=== PATIENT | female | born 2000 | race Caucasian/White ===

== ENCOUNTER 2024-10-31 09:11 | Outpatient (CLI) | payer MEDICAID, SELFPAY | END 2024-10-31 23:59 | disposition home or self-care (01) | LOC: LAB 09:12 | PROVIDERS: Visit Provider Nurse Practitioner Obstetrics & Gynecology | DX: Z32.01 Encounter for pregnancy test, result positive (principal) | CPT/HCPCS: 36415; 84144; 84702 ==

== ENCOUNTER 2024-11-21 15:04 | Outpatient (CLI) | payer MEDICAID, SELFPAY ==
[2024-11-21 16:03] LABS: Hematocrit 38.1 % (37.0-47.0); Hemoglobin 12.4 g/dL (12.2-16.2); Immature Granulocytes % 0.3 %; Mean Corpuscular HGB Conc 32.5 g/dL (31.8-35.4); Mean Corpuscular Hemoglobin 26.5 pg (27.0-31.2); Mean Corpuscular Volume 81.4 fl (81-99); Nucleated Red Blood Cells % 0 %; Platelet Count 288 K/mm3 (142-424); Red Blood Count 4.68 M/mm3 (4.20-5.40); Red Cell Distribution Width-SD 45.7 fL; White Blood Count 10.5 K/mm3 (4.8-10.8)
[2024-11-21 17:49] LABS: Hepatitis C Ab Qual. W/ RFX REACTIVE (Negative)
[2024-11-22 07:10] LABS: Hepatitis B Surface Antigen Negative (Negative)
[2024-11-22 08:12] LABS: Rubella Antibodies, IgG <0.90 index (Immune >0.99)
[2024-11-22 11:37] LABS: RPR W/RFX Titers Nonreactive (Nonreactive)
== END 2024-11-21 23:59 | disposition home or self-care (01) ==
LOC: LAB 15:05
PROVIDERS: Visit Provider Nurse Practitioner Obstetrics & Gynecology
DX: Z34.91 Encounter for supervision of normal pregnancy, unspecified, first trimester (principal)
CPT/HCPCS: 36415; 80074; 85025; 86592; 86762; 86850; 87086; 87088; 87186; 87340; 87389; 87522

== ENCOUNTER 2024-11-28 09:25 | Outpatient (CLI) | payer MEDICAID, SELFPAY ==
--- NOTE | 2024-11-28 11:00 | US_ITS ---
PROCEDURE: US OB >= 14 WEEKS FETUS CLINICAL INDICATION: needs for dates and viability COMPARISON: US US OB TRANSVAGINAL from 11/28/2024 FINDINGS: Transabdominal sonographic images of the pelvis were obtained. From her last menstrual period she is 16weeks 4days. Viable fetus in the breech presentation with an anterior placenta grade 1. The fluid appears to be within normal limits. An intrauterine gestational sac is present with a pole with a crown-rump length of 10.33cm This correlates to a gestational age of 16weeks 2 days. heart tones are present with an FHR of 152bpm. . IMPRESSION: 1. Viable fetus in the breech presentation with an anterior placenta grade 1. 2. The fluid subjectively appears within normal limits. 3. Fetus crown-rump length measures 16 weeks 2 days with is consistent with her last menstrual period. 4. Her JOHANN will remain 05/11/2025. 5. Suggest repeat scan at 20 weeks for complete anatomy. Dictated by: Pepe Ambrosio MD 11/28/2024 10:22 Pepe Ambrosio MD in [facility] 11/28/2024 10:22
--- NOTE | 2024-11-28 11:00 | US_ITS ---
PROCEDURE: US OB TRANSVAGINAL CLINICAL INDICATION: needs for dates and viability COMPARISON: US US OB >= 14 WEEKS FETUS from 11/28/2024 FINDINGS: Transvaginal sonographic images of the pelvis were obtained. From her last menstrual period she is 16weeks 4days. There is a fetus in the cephalic presentation. The placenta is anterior and 2.68 cm from the internal cervical os. The cervix measures 3.49 cm transvaginally. IMPRESSION: 1. Fetus in the cephalic presentation with an anterior placenta grade 1. 2. The anterior placenta is 2.68 cm from the internal cervical os. 3. The cervix measures 3.49 cm in length transvaginally. Dictated by: Pepe Ambrosio MD 11/28/2024 10:19 Pepe Ambrosio MD in OV 11/28/2024 10:19
== END 2024-11-28 23:59 | disposition home or self-care (01) ==
LOC: RAD 09:26
PROVIDERS: Visit Provider Nurse Practitioner Obstetrics & Gynecology
DX: Z36.87 Encounter for antenatal screening for uncertain dates (principal); Z3A.16 16 weeks gestation of pregnancy
CPT/HCPCS: 76805; 76817